=== PATIENT | female | born 1970 | race Caucasian/White ===

== ENCOUNTER 2016-05-31 07:14 | Emergency (ER) | payer BC, OTHER ==
[2016-05-31 07:33] VITALS: TEMP 99
[2016-05-31] MEDS ORDERED: IPRATROPIUM/ALBUTEROL 3 ML VIAL NEB ONE (07:33)
[2016-05-31] MEDS ORDERED: DEXAMETHASONE INJ 10 MG/ML VIAL IM ONE (07:34)
[2016-05-31] MEDS ORDERED: KETOROLAC TROMETHAMINE INJ 60 MG/2 ML VIAL IM ONE (07:34)
[2016-05-31] MEDS ORDERED: AMOXICILLIN TRIHYDRATE 875 MG TAB PO ONE (07:34)
--- NOTE | 2016-05-31 07:37 | ED.PDOC ---
History of Present Illness - General Chief Complaint: Respiratory Problem Stated Complaint: sore throat Time Seen by Provider: 05/31/16 07:23 Source: patient Exam Limitations: no limitations - History of Present Illness Comments: PT REPORTS 2 DAY HISTORY OF SORE THROAT, CONGESTION, COUGH, AND WHEEZING. PT DENIES FEVER. Cough Quality/Degree: mild Improving Factors: other - IBUPROFEN Worsening Factors: nothing Associated Symptoms: cough, nasal congestion, wheezing Allergies/Adverse Reactions: Allergies Codeine Allergy (Verified 05/31/16 07:39) Home Medications: Ambulatory Orders Albuterol Inhaler [Ventolin Hfa Inhaler] 1 puff INH Q4H PRN 05/31/16 Albuterol Sulfate Nebs [Proventil Nebs] 2.5 mg INH Q4HR PRN 05/31/16 Amoxicillin 875 mg PO TID #20 tab 05/31/16 Ibuprofen 800 mg PO Q8HR PRN #30 tab 05/31/16 Review of Systems - Review of Systems Constitutional: Denies: chills, fever EENTM: States: see HPI, throat pain. Denies: ear pain Respiratory: States: see HPI, cough, wheezing Cardiology: Denies: chest pain, palpitations Gastrointestinal/Abdominal: Denies: abdominal pain, vomiting Past Medical History (General) - Patient Medical History Hx Seizures: No Hx Stroke: No Hx Asthma: Yes Hx Cardiac Disorders: No Hx Congestive Heart Failure: No Hx Pacemaker: No Hx Hypertension: No Hx Thyroid Disease: No Hx Diabetes: No Hx Gastroesophageal Reflux: No Hx Cancer: No Surgical History: other - Social History Hx Tobacco Use: No - Female History Patient is a Female of Child Bearing Age (10 -59 yrs old): Yes Family Medical History - Family History Mother Family History: No Known Physical Exam - Physical Exam General Appearance: Alert, Well Developed, Well Hydrated Eye Exam: bilateral normal ENT Exam: pharyngeal erythema, other - ENLARGED TONSILS BILATERALLY, L >R, NO EXUDATES, NO UVULAR DEVIATION Neck: lymphadenopathy (R), lymphadenopathy (L), tender lateral - L>R Respiratory: no respiratory distress, wheezing Cardiovascular/Chest: regular rate, rhythm, no gallop Gastrointestinal/Abdominal: non tender, soft Extremity: normal inspection Neurologic: alert, normal mood/affect, oriented x 3 Skin Exam: normal color, warm/dry Progress - Progress Progress: 05/31/16 07:38 IM TORADOL AND DECADRON ADMINISTERED. PT GIVEN DUONEB AND PO AMOX IN THE ED. 05/31/16 08:16 PT HAD RESOLUTION OF WHEEZING AFTER DUONEB AND PAIN IS IMPROVED AFTER TORADOL. Departure - Departure Clinical Impression: Bronchitis, Pharyngitis Time of Disposition: 08:17 Disposition: Discharge to Home or Self Care Condition: Good Departure Forms: ED Discharge - Pt. Copy, Patient Portal Self Enrollment Instructions: DI for Pharyngitis/Tonsillopharyngitis -- Adult, DI for Acute Bronchitis Diet: resume usual diet Referrals: DAVID MATAMOROS IV, ELECT[employer]MENT SET UP OPERATOR [Primary Care Provider] - 1-2 Weeks Prescriptions: Ibuprofen 800 mg PO Q8HR PRN #30 tab PRN Reason: Pain Amoxicillin 875 mg PO TID #20 tab Home Medications: Ambulatory Orders Albuterol Inhaler [Ventolin Hfa Inhaler] 1 puff INH Q4H PRN 05/31/16 Albuterol Sulfate Nebs [Proventil Nebs] 2.5 mg INH Q4HR PRN 05/31/16 Amoxicillin 875 mg PO TID #20 tab 05/31/16 Ibuprofen 800 mg PO Q8HR PRN #30 tab 05/31/16
[2016-05-31 08:30] VITALS: BP 124/89; O2SAT 96
== END 2016-05-31 08:26 | disposition home or self-care (01) ==
LOC: ER 07:14
DX: J02.9 Acute pharyngitis, unspecified (principal); J40 Bronchitis, not specified as acute or chronic; J45.909 Unspecified asthma, uncomplicated; Z88.6 Allergy status to analgesic agent; Z79.899 Other long term (current) drug therapy

== ENCOUNTER → 2018-04-24 | Outpatient (CLI) | payer BC ==
--- NOTE | 2018-04-24 17:40 | RAD ---
EXAM DESCRIPTION: Shoulder,Right 2 or More Views CLINICAL HISTORY: PAIN IN UNSPECIFIED SHOULDER RIGHT COMPARISON: Chest x-ray March 24, 2013 TECHNIQUE: Two views of the right shoulder. FINDINGS: There is adequate internal and external rotation. There is no fracture or dislocation. There are no significant degenerative changes observed. AC joint appears intact. Calcific or ossific density is seen above the greater tuberosity of the proximal humerus. Hydroxyapatite crystal deposition would be considered. This is larger than on the previous chest x-ray where a subtle density was seen in this area. Accessory ossicle in the rotator cuff is not thought likely. This measures 8 mm. IMPRESSION: Calcific or ossific density in the region of the rotator cuff measures 8 mm. See above. Electronically signed by: Efrem Tran MD 04/24/2018 5:37 PM CDT
== END ==
LOC: RAD 15:14
PROVIDERS: ATTEND Nurse Practitioner Family
DX: M25.511 Pain in right shoulder (principal)

== ENCOUNTER → 2018-07-10 | Outpatient (CLI) | payer BC ==
--- NOTE | 2018-07-11 12:23 | RAD ---
EXAM DESCRIPTION: Barium Swallow: Rad-Fluoroscopy. CLINICAL HISTORY: DYSPHAGIA COMPARISON: None. TECHNIQUE: The patient swallowed barium pill with water. The patient swallowed gas-producing granules, water, and heavy density barium under fluoroscopic visualization. The images were obtained with the patient standing and horizontal. Patient drank medium density barium through a straw in the semi-prone position. 89 fluoroscopic cine loop images. 14 static fluoroscopic images. Total fluoroscopy time was 3.9 minutes. DAP: 44.19 Gy-cm2.. FINDINGS: The barium pill did not pass through the gastroesophageal junction with water. Passage into the stomach with barium. No significant delay in swallowing or premature spillage. No laryngeal aspiration. There is a circumferential narrowing of the proximal esophagus 2 cm below the glottis and predominantly anterior and to the right of midline. Part of this narrowing is irregular and otherwise smooth mucosal surface. Moderately sized hiatal hernia. No filling defects in the hiatal hernia. Prominent Schatzki's ring superior to the hiatal hernia with at least 50% diameter reduction. Irregularity of the mucosal surface at this narrowing side. Gastroesophageal reflux to the level of the tracheal michael. No mass effect in the stomach or large intrinsic mucosal defects. Delayed gastric emptying. Gastroduodenal junction is patent with no obstruction. IMPRESSION: 1. No laryngeal aspiration. Intrinsic mucosal narrowing versus external mass effect on the proximal cervical esophagus. Consider endoscopic evaluation. 2. Moderate sized hiatal hernia, fixed above the diaphragm but variable in size. Moderate Schatzki's ring and narrowing on the superior hernia with mucosal irregularity. Consider endoscopic evaluation at this level also. Moderate gastroesophageal reflux. 3. No mass effect on the stomach. No large intrinsic defects. Delayed emptying of the stomach, but no gastroduodenal obstruction. Electronically signed by: Mark Garcia MD 07/11/2018 12:21 PM CDT
== END ==
LOC: RAD 12:25
PROVIDERS: ATTEND Nurse Practitioner Family
DX: K44.9 Diaphragmatic hernia without obstruction or gangrene (principal); K22.2 Esophageal obstruction

== ENCOUNTER 2019-03-30 15:58 | Emergency (ER) | payer BC ==
[2019-03-30] MEDS: TETANUS,DIPHTHERIA,PERTUSSIS 1 EA SYG IM ONE (17:01)
--- NOTE | 2019-03-30 17:03 | ED.PDOC ---
History of Present Illness - General Chief Complaint: Trauma Stated Complaint: Headache, L upper arm pain and L knee pain Time Seen by Provider: 03/30/19 16:43 Source: patient, RN notes reviewed, Vital Signs reviewed Exam Limitations: no limitations - History of Present Illness Initial Comments: Patient is a 48-year-old white female who was at home with friends, having a glass of wine when she slipped and fell striking her left upper arm on the granite countertop as well as her head. Patient states that there was no loss of consciousness but she is amnestic to the surrounding events. Patient presents with complaints of mild headache, visual field disturbances, mild intermittent confusion and occasional waves of nausea. She has not had any vomiting. The symptoms have progressively improved over the last 24 hours. The pain is throbbing in nature, worse with looking at a computer screen or bending over, better when she rests in bed. Occurred: yesterday Severity: moderate Pain Location: head, upper extremity - Left upper arm, lower extremity - Left knee Method of Injury: fall Improving Factors: rest Worsening Factors: movement Loss of Consciousness: unsure Associated Symptoms (Fall): confusion, dizziness, headache, nausea/vomiting - Nausea only, vision changes Allergies/Adverse Reactions: Allergies Codeine Allergy (Verified 03/30/19 16:36) Home Medications: Ambulatory Orders Albuterol Inhaler [Ventolin Hfa Inhaler] 1 puff INH Q4H PRN 05/31/16 Albuterol Sulfate Nebs [Proventil Nebs] 2.5 mg INH Q4HR PRN 05/31/16 Review of Systems - Review of Systems Constitutional: States: see HPI. Denies: chills, fever, weakness EENTM: States: see HPI, blurred vision. Denies: tearing, double vision, nose congestion Respiratory: States: no symptoms reported. Denies: cough, short of breath, wheezing Cardiology: States: no symptoms reported. Denies: chest pain, palpitations, other Gastrointestinal/Abdominal: States: see HPI, nausea. Denies: abdominal pain, diarrhea, vomiting Genitourinary: States: no symptoms reported. Denies: dysuria, frequency, hematuria Musculoskeletal: States: see HPI, neck pain - Mild left paracervical pain, no midline pain.. Denies: back pain, joint pain, joint swelling, muscle pain, muscle stiffness Skin: States: see HPI, lumps - Patient with a small abrasion and hematoma to the superior occiput. Neurological: States: headache, tremors. Denies: numbness, paresthesia, tingling, weakness Endocrine: States: no symptoms reported Hematologic/Lymphatic: States: no symptoms reported All other Systems: Reviewed and Negative Past Medical History (General) - Patient Medical History Hx Seizures: No Hx Stroke: No Hx Asthma: Yes Hx of COPD: No Hx Cardiac Disorders: No Hx Congestive Heart Failure: No Hx Pacemaker: No Hx Hypertension: No Hx Thyroid Disease: No Hx Diabetes: No Hx Gastroesophageal Reflux: Yes Hx Cancer: No Surgical History: other - Vaccination History Hx Tetanus, Diphtheria Vaccination: No Hx Influenza Vaccination: No Hx Pneumococcal Vaccination: No Immunizations Up to Date: No - Social History Hx Tobacco Use: Yes Hx Alcohol Use: Yes Hx Substance Use: No Hx Substance Use Treatment: No Hx Depression: No - Female History Patient is a Female of Child Bearing Age (10 -59 yrs old): Yes Patient : No - Denies Family Medical History - Family History Mother Family History: No Known Physical Exam - Physical Exam General Appearance: Alert, Comfortable, Well Developed, Well Groomed, Well Hydrated, Well Nourished Head Injury: contusions, swelling, tenderness - Superior occiput. 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 03/30/19 17:07 Patient has mild symptoms of a concussion and traumatic brain injury. There is no crepitus over the site of the contusion and hematoma and therefore I do not believe that she has a skull fracture. At this time we will manage conservatively with Tylenol and Motrin for pain and follow-up with PCP for further evaluation should the need arise. Of discussed this plan of care with the patient and she voices understanding and agreement. Bran Cobb M.D. #[id number] Departure - Departure Clinical Impression: Traumatic brain injury with brief loss of consciousness Head contusion Qualifiers: Encounter type: sequela Contusion of head detail: scalp Qualified Code(s): S00.03XS - Contusion of scalp, sequela Concussion Qualifiers: Encounter type: initial encounter Loss of consciousness presence/duration: with LOC of 30 min or less Qualified Code(s): S06.0X1A - Concussion with loss of consciousness of 30 minutes or less, initial encounter Disposition: Discharge to Home or Self Care Condition: Good Departure Forms: ED Discharge - Pt. Copy, Patient Portal Self Enrollment Instructions: Concussion, Adult (DC), Postconcussion Syndrome (DC) Diet: resume usual diet Activity: increase activity as tolerated Referrals: Melissa Guerra NP [Primary Care Provider] - 1-5 Days Home Medications: Ambulatory Orders Albuterol Inhaler [Ventolin Hfa Inhaler] 1 puff INH Q4H PRN 05/31/16 Albuterol Sulfate Nebs [Proventil Nebs] 2.5 mg INH Q4HR PRN 05/31/16
[2019-03-30 17:26] VITALS: BP 132/83; TEMP 98.4; O2SAT 94
== END 2019-03-30 17:15 | disposition home or self-care (01) ==
LOC: ER 15:58
DX: S06.0X1A Concussion with loss of consciousness of 30 minutes or less, initial encounter (principal); S00.03XA Contusion of scalp, initial encounter; M54.2 Cervicalgia; J45.909 Unspecified asthma, uncomplicated; K21.9 Gastro-esophageal reflux disease without esophagitis; Z23 Encounter for immunization; Z79.899 Other long term (current) drug therapy; Z87.891 Personal history of nicotine dependence; Z88.5 Allergy status to narcotic agent; W01.198A Fall on same level from slipping, tripping and stumbling with subsequent striking against other object, initial encounter; Y92.009 Unspecified place in unspecified non-institutional (private) residence as the place of occurrence of the external cause

== ENCOUNTER → 2019-06-12 | Outpatient (CLI) | payer BC | LOC: LAB.O 09:18 | PROVIDERS: ATTEND Nurse Practitioner Family | DX: Z00.01 Encounter for general adult medical examination with abnormal findings (principal) ==

== ENCOUNTER → 2019-07-11 | Outpatient (CLI) | payer BC | LOC: LAB.O 09:12 | PROVIDERS: ATTEND Nurse Practitioner Family | DX: E03.9 Hypothyroidism, unspecified (principal) ==

== ENCOUNTER → 2019-12-24 | Outpatient (CLI) | payer BC ==
--- NOTE | 2019-12-25 09:43 | RAD ---
EXAM: Hip,Left 2 Views INDICATION: 49 years Female, PAIN LEFT HIP COMPARISON: None available FINDINGS: 2 views of the left hip were performed. No fracture or dislocation. No destructive osseous lesion. Mild degenerative change in the hip. Pubic symphysis and visualized portion of the sacroiliac joints are intact. Unremarkable appearance of the visualized soft tissues. IMPRESSION: Mild degenerative change in the left hip without fracture or dislocation. Electronically signed by: Anna Quiles MD 12/25/2019 9:41 AM [facility]
== END ==
LOC: LAB.O 11:27
PROVIDERS: ATTEND Nurse Practitioner Family
DX: Z00.01 Encounter for general adult medical examination with abnormal findings (principal); M16.12 Unilateral primary osteoarthritis, left hip; E03.9 Hypothyroidism, unspecified

== ENCOUNTER → 2020-01-27 | Outpatient (CLI) | payer BC ==
--- NOTE | 2020-02-02 08:25 | RAD ---
EXAM DESCRIPTION: Hand,Right 3 Views CLINICAL HISTORY: HAND PAIN COMPARISON: None Available. TECHNIQUE: Three views right hand FINDINGS: Three views right hand demonstrate normal mineralization. No soft tissue foreign bodies noted. No fracture or dislocation evident. Minimal degenerative change evident with no significant destructive arthropathy noted. No evidence of osteonecrosis. IMPRESSION: 1. Mild degenerative changes right hand with no acute process evident. Electronically signed by: Rao Cadet MD 02/02/2020 8:23 AM [facility]
--- NOTE | 2020-02-02 08:27 | RAD ---
EXAM DESCRIPTION: Hand,Left 3 Views CLINICAL HISTORY: HAND PAIN COMPARISON: None Available. TECHNIQUE: Three views left hand FINDINGS: The bones are normally mineralized. No fracture or dislocation seen. Early modest degenerative changes at the base of the thumb at the CMC joint present. No significant dislocation evident. No soft tissue foreign body noted. No evidence of destructive or erosive arthropathy evident. IMPRESSION: 1. Mild degenerative changes left hand, most prominent at the CMC joint at the base of the thumb. Electronically signed by: Rao Cadet MD 02/02/2020 8:25 AM [facility]
== END ==
LOC: RAD 07:32
PROVIDERS: ATTEND Orthopaedic Surgery
DX: M19.041 Primary osteoarthritis, right hand (principal); M19.042 Primary osteoarthritis, left hand